=== PATIENT | female | born 1975 | race Two or more races ===

== ENCOUNTER 2017-12-30 05:20 | Inpatient (IN) | payer OTHER ==
[2017-12-29 11:17] LABS: ADD MAN DIFF? NO
[2017-12-29 11:38] LABS: BASOPHILS % 0.9 % (0.0-2.0); EOSINOPHILS # 0.2 10^3/ul (0.0-0.5); EOSINOPHILS % 4.3 % (0.0-7.0); HEMATOCRIT 38.6 % (37.0-47.0); HEMOGLOBIN 12.7 g/dl (12.0-16.0); LYMPHOCYTES # 1.3 10^3/ul (0.8-2.9); LYMPHOCYTES % 29.8 % (15.0-51.0); MEAN CORPUSCULAR HEMOGLOBIN 28.1 pg (29.0-33.0); MEAN CORPUSCULAR HGB CONC 32.9 g/dl (32.0-37.0); MEAN CORPUSCULAR VOLUME 85.4 fl (82.0-101.0); MEAN PLATELET VOLUME 10.3 fl (7.4-10.4); MONOCYTE # 0.3 10^3/ul (0.3-0.9); MONOCYTES % 7.5 % (0.0-11.0); NEUTROPHIL # 2.5 10^3/ul (1.6-7.5); NEUTROPHILS % 57.3 % (39.0-77.0); PLATELET COUNT 248 10^3/UL (140-415); RED BLOOD COUNT 4.52 10^6/ul (4.20-5.40); RED CELL DISTRIBUTION WIDTH 13.1 % (11.5-14.5)
[2017-12-29 11:38] LABS: WHITE BLOOD COUNT 4.4 10^3/ul (4.8-10.8)
[2017-12-29 11:52] LABS: ALANINE AMINOTRANSFERASE 34 IU/L (13-69); ALBUMIN/GLOBULIN RATIO 1.02; ALKALINE PHOSPHATASE 77 IU/L (42-121); ANION GAP 14 (8-16); ASPARTATE AMINO TRANSFERASE 28 IU/L (15-46); BILIRUBIN,INDIRECT 0.5 mg/dl (0-1.1); BILIRUBIN,TOTAL 0.5 mg/dl (0.2-1.3); BLOOD UREA NITROGEN 9 mg/dl (7-20); CALCIUM 9.1 mg/dl (8.4-10.2); CARBON DIOXIDE 26 mmol/L (21-31); CHLORIDE 108 mmol/L (97-110); CREATININE 0.64 mg/dl (0.44-1.00); GLUCOSE 101 mg/dl (70-220); INR 1.04; PROTIME 13.7 Sec (11.9-14.9); PT RATIO 1.1; SODIUM 144 mmol/L (135-144); TOTAL PROTEIN 7.9 g/dl (6.1-8.1)
[2017-12-29 11:53] LABS: PARTIAL THROMBOPLASTIN TIME 36.2 Sec (25.0-35.0)
[2017-12-29 12:05] LABS: ADD UMIC YES; UR ASCORBIC ACID NEGATIVE (NEGATIVE); UR BACTERIA FEW /HPF (NONE SEEN); UR BILIRUBIN (Dip) NEGATIVE (NEGATIVE); UR BLOOD (Dip) 1+ mg/dL (NEGATIVE); UR CLARITY CLOUDY (CLEAR); UR COLOR YELLOW (YELLOW); UR GLUCOSE (Dip) NEGATIVE (NEGATIVE); UR KETONES (Dip) NEGATIVE (NEGATIVE); UR LEUKOCYTE ESTERASE (Dip) NEGATIVE Leu/ul (NEGATIVE); UR MUCUS MANY /HPF (NONE SEEN); UR NITRITE (Dip) NEGATIVE (NEGATIVE); UR RBC 0 /HPF (0-5); UR SPECIFIC GRAVITY (Dip) 1.023 (1.003-1.030); UR SQUAMOUS EPITHELIAL CELL MANY /HPF (FEW); UR TOTAL PROTEIN (Dip) NEGATIVE (NEGATIVE); UR UROBILINOGEN (Dip) NEGATIVE (NEGATIVE); UR WBC 1 /HPF (0-5)
[2017-12-30] MEDS ORDERED: LIDOCAINE 2% (SDV) 5 ML INJ (07:55)
[2017-12-30] MEDS ORDERED: PROPOFOL 20 ML (07:55)
[2017-12-30] MEDS ORDERED: SUCCINYLCHOLINE CHLORIDE 100 MG/5 ML SYG IV (07:55)
[2017-12-30] MEDS ORDERED: ROCURONIUM 50 MG INJ ×2 (07:55→08:47)
[2017-12-30] MEDS ORDERED: MIDAZOLAM 1 MG/ML 2 ML INJ (07:55)
[2017-12-30] MEDS ORDERED: FAMOTIDINE 20 MG INJ (08:47)
[2017-12-30] MEDS ORDERED: CEFAZOLIN 1 GM INJ (08:47)
[2017-12-30] MEDS ORDERED: DEXAMETHASONE 4 MG/ML 1 ML INJ (08:47)
[2017-12-30] MEDS ORDERED: ONDANSETRON 4 MG INJ (08:47)
[2017-12-30] MEDS: LIDOCAINE 1%/EPI 30 ML INJ (08:59)
[2017-12-30] MEDS ORDERED: HYDROmorphONE 2 MG/ML SYG (09:43)
[2017-12-30] MEDS ORDERED: EPHEDrine SULFATE 50 MG/5 ML SYG (09:49)
[2017-12-30] MEDS ORDERED: ACETAMINOPHEN 1000MG/100ML IV 100 ML (09:55)
[2017-12-30] MEDS ORDERED: SUGAMMADEX SODIUM 200 MG/2 ML VIAL IV ×2 (10:23→10:24)
[2017-12-30] MEDS ORDERED: ROPIVACAINE 0.5 % 30 ML VIAL (10:43)
[2017-12-30] MEDS ORDERED: NALOXONE (0.4 MG/ML) INJ IV (11:30)
[2017-12-30] MEDS ORDERED: FENTAnyl 50 MCG/ML VIAL IV (12:00)
[2017-12-30] MEDS ORDERED: MEPERIDINE 25 MG INJ IV (12:00)
[2017-12-30] MEDS ORDERED: DIPHENHYDRAMINE 50 MG INJ IV (12:00)
[2017-12-30] MEDS ORDERED: HYDROmorphONE (0.2 MG/ML) 10ML SYG IV ×3 (12:00)
[2017-12-30] MEDS ORDERED: PROCHLORPERAZINE 10 MG INJ IV (12:00)
[2017-12-30 12:07] LABS: ADD MAN DIFF? NO
[2017-12-30 12:10] LABS: BASOPHILS % 0.3 % (0.0-2.0); EOSINOPHILS % 0.2 % (0.0-7.0); HEMATOCRIT 37.2 % (37.0-47.0); LYMPHOCYTES # 1.5 10^3/ul (0.8-2.9); LYMPHOCYTES % 10.8 % (15.0-51.0); MEAN CORPUSCULAR HEMOGLOBIN 28.2 pg (29.0-33.0); MEAN CORPUSCULAR HGB CONC 32.3 g/dl (32.0-37.0); MEAN CORPUSCULAR VOLUME 87.3 fl (82.0-101.0); MEAN PLATELET VOLUME 10.6 fl (7.4-10.4); MONOCYTE # 0.2 10^3/ul (0.3-0.9); MONOCYTES % 1.4 % (0.0-11.0); NEUTROPHIL # 11.9 10^3/ul (1.6-7.5); NEUTROPHILS % 86.9 % (39.0-77.0); PLATELET COUNT 226 10^3/UL (140-415); RED BLOOD COUNT 4.26 10^6/ul (4.20-5.40); RED CELL DISTRIBUTION WIDTH 13.2 % (11.5-14.5)
[2017-12-30 12:10] LABS: WHITE BLOOD COUNT 13.8 10^3/ul (4.8-10.8)
[2017-12-30] MEDS: morphine 1 MG/ML 30 ML (PCA) IV (12:10)
[2017-12-30 12:16] LABS: HOLD TRANSMISSIONS 1
[2017-12-30] MEDS: ONDANSETRON 4 MG INJ IV ×3 (12:17→23:56)
[2017-12-30 12:26] LABS: ANION GAP 10 (8-16); CARBON DIOXIDE 27 mmol/L (21-31); CHLORIDE 107 mmol/L (97-110); GLUCOSE 159 mg/dl (70-220)
[2017-12-30 12:27] LABS: BLOOD UREA NITROGEN 9 mg/dl (7-20); CALCIUM 8.5 mg/dl (8.4-10.2); CREATININE 0.65 mg/dl (0.44-1.00); POTASSIUM 4.2 mmol/L (3.5-5.1); SODIUM 140 mmol/L (135-144)
[2017-12-30] MEDS: LACTATED RINGER'S 1,000 ML IV ×2 (13:37→20:50)
[2017-12-30] MEDS: morphine 2 MG INJ IV (19:00)
[2017-12-31] MEDS: ALBUTEROL/IPRATROPIUM (NEB) 3 ML AMP HHN ×2 (00:09→08:40)
[2017-12-31] MEDS: LACTATED RINGER'S 1,000 ML IV ×4 (04:43→21:29)
[2017-12-31 05:46] LABS: ADD MAN DIFF? NO
[2017-12-31 06:05] LABS: WHITE BLOOD COUNT 8.6 10^3/ul (4.8-10.8)
[2017-12-31 06:05] LABS: BASOPHILS % 0.3 % (0.0-2.0); EOSINOPHILS % 0.1 % (0.0-7.0); HEMOGLOBIN 10.7 g/dl (12.0-16.0); LYMPHOCYTES # 1.2 10^3/ul (0.8-2.9); LYMPHOCYTES % 14.1 % (15.0-51.0); MEAN CORPUSCULAR HEMOGLOBIN 27.5 pg (29.0-33.0); MEAN CORPUSCULAR HGB CONC 31.5 g/dl (32.0-37.0); MEAN CORPUSCULAR VOLUME 87.4 fl (82.0-101.0); MONOCYTE # 0.7 10^3/ul (0.3-0.9); MONOCYTES % 8.4 % (0.0-11.0); NEUTROPHIL # 6.6 10^3/ul (1.6-7.5); NEUTROPHILS % 76.9 % (39.0-77.0); PLATELET COUNT 209 10^3/UL (140-415); RED BLOOD COUNT 3.89 10^6/ul (4.20-5.40); RED CELL DISTRIBUTION WIDTH 13.1 % (11.5-14.5)
[2017-12-31 06:09] LABS: ANION GAP 9 (8-16); BLOOD UREA NITROGEN 7 mg/dl (7-20); CALCIUM 8.7 mg/dl (8.4-10.2); CARBON DIOXIDE 26 mmol/L (21-31); CHLORIDE 107 mmol/L (97-110); GLUCOSE 109 mg/dl (70-220); POTASSIUM 3.8 mmol/L (3.5-5.1); SODIUM 138 mmol/L (135-144)
[2017-12-31] MEDS: IBUPROFEN 600 MG TAB PO ×2 (07:48→17:26)
[2017-12-31] MEDS: ONDANSETRON 4 MG INJ IV (07:51)
[2017-12-31] MEDS: ENOXAPARIN 40 MG/0.4 ML SYG SC (09:12)
[2018-01-01 04:50] LABS: ADD MAN DIFF? NO
[2018-01-01 04:55] LABS: BASOPHILS % 0.5 % (0.0-2.0); EOSINOPHILS # 0.2 10^3/ul (0.0-0.5); EOSINOPHILS % 3.4 % (0.0-7.0); HEMATOCRIT 29.2 % (37.0-47.0); HEMOGLOBIN 9.5 g/dl (12.0-16.0); LYMPHOCYTES # 1.1 10^3/ul (0.8-2.9); LYMPHOCYTES % 25.2 % (15.0-51.0); MEAN CORPUSCULAR HEMOGLOBIN 28.2 pg (29.0-33.0); MEAN CORPUSCULAR HGB CONC 32.5 g/dl (32.0-37.0); MEAN CORPUSCULAR VOLUME 86.6 fl (82.0-101.0); MEAN PLATELET VOLUME 10.4 fl (7.4-10.4); MONOCYTE # 0.4 10^3/ul (0.3-0.9); MONOCYTES % 8.9 % (0.0-11.0); NEUTROPHIL # 2.7 10^3/ul (1.6-7.5); NEUTROPHILS % 61.8 % (39.0-77.0); PLATELET COUNT 165 10^3/UL (140-415); RED BLOOD COUNT 3.37 10^6/ul (4.20-5.40); RED CELL DISTRIBUTION WIDTH 13.3 % (11.5-14.5)
[2018-01-01 05:30] LABS: ANION GAP 9 (8-16); BLOOD UREA NITROGEN 5 mg/dl (7-20); CARBON DIOXIDE 29 mmol/L (21-31); CHLORIDE 107 mmol/L (97-110); CREATININE 0.67 mg/dl (0.44-1.00); GLUCOSE 94 mg/dl (70-220); POTASSIUM 3.8 mmol/L (3.5-5.1); SODIUM 141 mmol/L (135-144)
[2018-01-01] MEDS: LACTATED RINGER'S 1,000 ML IV ×2 (05:33→13:52)
[2018-01-01 05:34] LABS: WHITE BLOOD COUNT 4.4 10^3/ul (4.8-10.8)
[2018-01-01] MEDS: IBUPROFEN 600 MG TAB PO ×2 (07:05→14:35)
[2018-01-01] MEDS: ENOXAPARIN 40 MG/0.4 ML SYG SC (09:47)
[2018-01-01] MEDS: ONDANSETRON 4 MG INJ IV ×2 (10:48→18:08)
[2018-01-01] MEDS: ALBUTEROL/IPRATROPIUM (NEB) 3 ML AMP HHN (16:32)
[2018-01-01] MEDS: morphine 2 MG INJ IV (17:32)
[2018-01-01] MEDS: morphine 1 MG/ML 30 ML (PCA) IV (18:31)
[2018-01-02] MEDS: IBUPROFEN 600 MG TAB PO ×2 (00:33→08:43)
[2018-01-02] MEDS: LACTATED RINGER'S 1,000 ML IV ×2 (00:37→14:15)
[2018-01-02 05:20] LABS: ADD MAN DIFF? NO
[2018-01-02 05:32] LABS: BASOPHILS % 0.5 % (0.0-2.0); EOSINOPHILS # 0.3 10^3/ul (0.0-0.5); EOSINOPHILS % 5.7 % (0.0-7.0); HEMATOCRIT 30.7 % (37.0-47.0); HEMOGLOBIN 9.8 g/dl (12.0-16.0); LYMPHOCYTES # 1.1 10^3/ul (0.8-2.9); LYMPHOCYTES % 25.7 % (15.0-51.0); MEAN CORPUSCULAR HGB CONC 31.9 g/dl (32.0-37.0); MEAN CORPUSCULAR VOLUME 87.7 fl (82.0-101.0); MEAN PLATELET VOLUME 10.9 fl (7.4-10.4); MONOCYTE # 0.4 10^3/ul (0.3-0.9); MONOCYTES % 9.4 % (0.0-11.0); NEUTROPHIL # 2.5 10^3/ul (1.6-7.5); NEUTROPHILS % 58.2 % (39.0-77.0); PLATELET COUNT 182 10^3/UL (140-415); RED CELL DISTRIBUTION WIDTH 13.2 % (11.5-14.5)
[2018-01-02 05:32] LABS: WHITE BLOOD COUNT 4.4 10^3/ul (4.8-10.8)
[2018-01-02 05:57] LABS: BLOOD UREA NITROGEN 5 mg/dl (7-20); CALCIUM 8.3 mg/dl (8.4-10.2); CARBON DIOXIDE 28 mmol/L (21-31); CREATININE 0.65 mg/dl (0.44-1.00); GLUCOSE 92 mg/dl (70-220); POTASSIUM 3.6 mmol/L (3.5-5.1); SODIUM 143 mmol/L (135-144)
[2018-01-02 06:00] LABS: ANION GAP 12 (8-16); CHLORIDE 107 mmol/L (97-110)
[2018-01-02] MEDS: ACETAMINOPHEN 325 MG TAB PO (07:03)
[2018-01-02] MEDS: ENOXAPARIN 40 MG/0.4 ML SYG SC (09:09)
[2018-01-02] MEDS: ONDANSETRON 4 MG INJ IV ×2 (10:43→19:02)
[2018-01-02] MEDS: HYDROCODONE/APAP (5/325) TAB PO ×2 (14:07→17:59)
[2018-01-03] MEDS: HYDROCODONE/APAP (5/325) TAB PO ×5 (00:53→23:24)
[2018-01-03] MEDS: ONDANSETRON 4 MG INJ IV ×2 (01:01→10:49)
[2018-01-03] MEDS: LACTATED RINGER'S 1,000 ML IV ×3 (03:39→16:42)
[2018-01-03] MEDS: KETOROLAC 30 MG INJ IV (03:40)
[2018-01-03] MEDS: morphine 2 MG INJ IV (05:28)
[2018-01-03 05:35] LABS: ADD MAN DIFF? NO
[2018-01-03 05:37] LABS: WHITE BLOOD COUNT 4.6 10^3/ul (4.8-10.8)
[2018-01-03 05:37] LABS: BASOPHILS % 0.4 % (0.0-2.0); EOSINOPHILS # 0.3 10^3/ul (0.0-0.5); EOSINOPHILS % 5.7 % (0.0-7.0); HEMATOCRIT 30.4 % (37.0-47.0); HEMOGLOBIN 10.1 g/dl (12.0-16.0); LYMPHOCYTES # 0.9 10^3/ul (0.8-2.9); LYMPHOCYTES % 19.6 % (15.0-51.0); MEAN CORPUSCULAR HEMOGLOBIN 28.6 pg (29.0-33.0); MEAN CORPUSCULAR HGB CONC 33.2 g/dl (32.0-37.0); MEAN CORPUSCULAR VOLUME 86.1 fl (82.0-101.0); MEAN PLATELET VOLUME 11.3 fl (7.4-10.4); MONOCYTE # 0.3 10^3/ul (0.3-0.9); MONOCYTES % 7.3 % (0.0-11.0); NEUTROPHILS % 66.6 % (39.0-77.0); PLATELET COUNT 207 10^3/UL (140-415); RED BLOOD COUNT 3.53 10^6/ul (4.20-5.40); RED CELL DISTRIBUTION WIDTH 13.4 % (11.5-14.5)
[2018-01-03 07:27] LABS: ANION GAP 13 (8-16); BLOOD UREA NITROGEN 4 mg/dl (7-20); CALCIUM 8.4 mg/dl (8.4-10.2); CARBON DIOXIDE 27 mmol/L (21-31); CHLORIDE 106 mmol/L (97-110); CREATININE 0.58 mg/dl (0.44-1.00); GLUCOSE 102 mg/dl (70-220); POTASSIUM 3.5 mmol/L (3.5-5.1); SODIUM 142 mmol/L (135-144)
[2018-01-03] MEDS: HYDROmorphONE 0.5 MG/0.5 ML SYG IV (07:37)
[2018-01-03] MEDS: ENOXAPARIN 40 MG/0.4 ML SYG SC (10:30)
[2018-01-04] MEDS: HYDROCODONE/APAP (5/325) TAB PO ×4 (05:07→22:27)
[2018-01-04 05:41] LABS: ADD MAN DIFF? NO
[2018-01-04 05:44] LABS: BASOPHILS % 0.4 % (0.0-2.0); EOSINOPHILS # 0.4 10^3/ul (0.0-0.5); EOSINOPHILS % 8.9 % (0.0-7.0); HEMATOCRIT 30.8 % (37.0-47.0); HEMOGLOBIN 10.3 g/dl (12.0-16.0); LYMPHOCYTES # 1.3 10^3/ul (0.8-2.9); LYMPHOCYTES % 26.3 % (15.0-51.0); MEAN CORPUSCULAR HEMOGLOBIN 28.9 pg (29.0-33.0); MEAN CORPUSCULAR HGB CONC 33.4 g/dl (32.0-37.0); MEAN CORPUSCULAR VOLUME 86.5 fl (82.0-101.0); MEAN PLATELET VOLUME 11.1 fl (7.4-10.4); MONOCYTE # 0.4 10^3/ul (0.3-0.9); MONOCYTES % 8.1 % (0.0-11.0); NEUTROPHIL # 2.7 10^3/ul (1.6-7.5); NEUTROPHILS % 56.1 % (39.0-77.0); PLATELET COUNT 191 10^3/UL (140-415); RED BLOOD COUNT 3.56 10^6/ul (4.20-5.40); RED CELL DISTRIBUTION WIDTH 13.3 % (11.5-14.5)
[2018-01-04 05:44] LABS: WHITE BLOOD COUNT 4.8 10^3/ul (4.8-10.8)
[2018-01-04 06:40] LABS: ANION GAP 14 (8-16); BLOOD UREA NITROGEN 6 mg/dl (7-20); CALCIUM 8.3 mg/dl (8.4-10.2); CARBON DIOXIDE 28 mmol/L (21-31); CHLORIDE 105 mmol/L (97-110); GLUCOSE 94 mg/dl (70-220); POTASSIUM 3.5 mmol/L (3.5-5.1); SODIUM 143 mmol/L (135-144)
[2018-01-04] MEDS: ENOXAPARIN 40 MG/0.4 ML SYG SC (08:55)
[2018-01-04] MEDS: LACTATED RINGER'S 1,000 ML IV (09:46)
[2018-01-05 05:36] LABS: ADD MAN DIFF? NO
[2018-01-05 05:39] LABS: WHITE BLOOD COUNT 4.6 10^3/ul (4.8-10.8)
[2018-01-05 05:39] LABS: BASOPHILS % 0.2 % (0.0-2.0); EOSINOPHILS # 0.4 10^3/ul (0.0-0.5); EOSINOPHILS % 9.6 % (0.0-7.0); HEMATOCRIT 31.2 % (37.0-47.0); HEMOGLOBIN 9.8 g/dl (12.0-16.0); LYMPHOCYTES # 1.4 10^3/ul (0.8-2.9); LYMPHOCYTES % 29.6 % (15.0-51.0); MEAN CORPUSCULAR HEMOGLOBIN 27.7 pg (29.0-33.0); MEAN CORPUSCULAR HGB CONC 31.4 g/dl (32.0-37.0); MEAN CORPUSCULAR VOLUME 88.1 fl (82.0-101.0); MONOCYTE # 0.5 10^3/ul (0.3-0.9); MONOCYTES % 9.8 % (0.0-11.0); NEUTROPHIL # 2.3 10^3/ul (1.6-7.5); NEUTROPHILS % 50.4 % (39.0-77.0); PLATELET COUNT 187 10^3/UL (140-415); RED BLOOD COUNT 3.54 10^6/ul (4.20-5.40); RED CELL DISTRIBUTION WIDTH 13.3 % (11.5-14.5)
[2018-01-05 06:41] LABS: ANION GAP 10 (8-16); BLOOD UREA NITROGEN 7 mg/dl (7-20); CALCIUM 8.4 mg/dl (8.4-10.2); CARBON DIOXIDE 31 mmol/L (21-31); CHLORIDE 105 mmol/L (97-110); CREATININE 0.66 mg/dl (0.44-1.00); GLUCOSE 92 mg/dl (70-220); POTASSIUM 3.7 mmol/L (3.5-5.1); SODIUM 142 mmol/L (135-144)
[2018-01-05] MEDS: ENOXAPARIN 40 MG/0.4 ML SYG SC (09:12)
[2018-01-05] MEDS: HYDROCODONE/APAP (5/325) TAB PO ×3 (09:12→19:41)
[2018-01-06] MEDS: HYDROCODONE/APAP (5/325) TAB PO ×2 (05:43→11:00)
[2018-01-06] MEDS: ENOXAPARIN 40 MG/0.4 ML SYG SC (09:20)
== END 2018-01-06 12:10 | disposition home or self-care (01) | DRG 742 ==
LOC: REC 05:20 → MS1 12:39
PROC: 0UT90ZZ Resection of Uterus, Open Approach (ICD-10-PCS; principal; 2017-12-30 07:30)
PROC: 0DNU0ZZ Release Omentum, Open Approach (ICD-10-PCS; 2017-12-30 07:30)
PROC: 0WJJ4ZZ Inspection of Pelvic Cavity, Percutaneous Endoscopic Approach (ICD-10-PCS; 2017-12-30 07:30)
PROC: 0UN00ZZ Release Right Ovary, Open Approach (ICD-10-PCS; 2017-12-30 07:30)
PROC: 0UN90ZZ Release Uterus, Open Approach (ICD-10-PCS; 2017-12-30 07:30)
PROC: 0UT70ZZ Resection of Bilateral Fallopian Tubes, Open Approach (ICD-10-PCS; 2017-12-30 07:30)
PROC: 0UT20ZZ Resection of Bilateral Ovaries, Open Approach (ICD-10-PCS; 2017-12-30 07:30)
DX: N83.512 Torsion of left ovary and ovarian pedicle (principal); Z68.42 Body mass index [BMI] 45.0-49.9, adult; N73.6 Female pelvic peritoneal adhesions (postinfective); N83.291 Other ovarian cyst, right side; E66.01 Morbid (severe) obesity due to excess calories; N83.292 Other ovarian cyst, left side; Z53.31 Laparoscopic surgical procedure converted to open procedure
CPT/HCPCS: 80048; 80053; 81001; 84703; 85025; 85610; 85730; 86850; 86900; 86901; 87086; 88307; 88331; 93005; 94640; 94664